=== PATIENT | male | born 1975 | race Caucasian/White ===

== ENCOUNTER 2025-04-30 08:02 | Emergency (ER) | payer OTHER, SELFPAY ==
[2025-04-30] VITALS (8 sets, daily range): BP systolic 98–115; BP diastolic 50–67; PULSE 67–97; RESP 12–16; TEMP 36.1–36.8; O2SAT 97–99; BMI 25.1
--- NOTE | 2025-04-30 08:33 | PC.NURSE ---
Patient presents to ED seeking detox [facility] ETOH use 10-15 whiteclaws everyday with some cocaine use daily Patient was sober about 2 months ago, detox was at [facility] in [facility] 3 Denies SI/HI/AH/VH Patient calm and cooperative with care Provider in to see patient Plan of care on going
--- NOTE | 2025-04-30 08:36 | ED.ALCOHOL ---
HPI - Alcohol General Chief Complaint: ETOH/Substance Use Stated Complaint: Detox Time Seen by Provider: 04/30/25 08:24 Source: patient, RN notes reviewed and old records reviewed Mode of arrival: ambulatory Limitations: no limitations History of Present Illness ED Provider: BRYANT Cruz HPI narrative: 49-year-old medical history of PTSD, depression, anxiety, alcohol use disorder, cocaine use disorder, presents to the ED for assistance with alcohol detox. Patient states currently drinking 10-15 white claws per day, with his last drink being approximately 11:00 p.m. last night. Patient states he had a period of sobriety as he went inpatient for alcohol use disorder through the [place] in November, however is now drinking daily for the past 2 months. Patient also reports cocaine use by sniffing, and has been using daily over the past 2 weeks. Patient states he has a history of alcohol withdrawal, with alcohol seizures and hospital admission. Additionally, patient states he is feeling as if he is withdrawing now as he endorses anxiety, and tremors. Patient also endorses nausea, numbness and tingling in bilateral fingers and toes, with a occipital headache that he rates 5/10, and intermittent blurry vision over the past 2 days. Patient states he has a past history of suicide attempts however denies that he is suicidal today. Patient denies SI, HI, VH, AH, chest pain, shortness of breath, abdominal pain Related Data Allergies Allergy/AdvReac Type Severity Reaction Status Date / Time No Known Allergies Allergy Verified 04/30/25 08:13 Review of Systems Review of Systems: Yes all other systems are reviewed and are negative PMFSH Past Medical History Attestation statement: The following information was validated with the patient. Source: old records reviewed and nursing notes reviewed Social History Social History Alcohol intake: current Alcohol intake frequency: 3 or more drinks per day Alcohol type: beer Smoked in Last 30 Days: Yes Use of substances other than those prescribed or required for medical reasons: Yes Substance Use Type: Crack/Cocaine Substance Use Frequency: Daily Advance Directives: Yes Advance Directives Information Provided: Yes Advance Directives on File: No Do you have a plan to hurt others: No Plan Physical Exam ED Vital Signs: Vital Signs - 24 hr 04/30/25 13:01 04/30/25 16:54 04/30/25 18:38 Temperature 98.2 F Pulse Rate 69 69 70 Respiratory Rate 16 16 14 Blood Pressure 104/50 L 110/67 114/66 Pulse Oximetry 99 99 99 Oxygen Delivery Method Room Air Room Air Room Air 04/30/25 20:11 Temperature 98.2 F Pulse Rate 70 Respiratory Rate 14 Blood Pressure 114/66 Pulse Oximetry 99 Oxygen Delivery Method Room Air BMI result Body Mass Index 25.1 GENERAL APPEARANCE: ?AxOx4, no acute distress. HEENT: ?NC, AT. MMM. EOMI, clear conjunctiva, oropharynx clear. NECK: ?Supple without lymphadenopathy.? No stiffness or restricted ROM. HEART:? Normal rate and regular rhythm, normal S1/S2, no m/r/g LUNGS:? CTAB, moving air well. No crackles or wheezes are heard. ABDOMEN: ?Soft, nontender, nondistended with good bowel sounds heard. BACK: No CVAT, no obvious deformity. EXTREMITIES: ?Without cyanosis, clubbing or edema. NEUROLOGICAL: ?Grossly nonfocal. Alert and oriented, moving all 4 extremities. Observed to ambulate with normal gait. Skin: ?Warm and dry without any rash. Course Reevaluation(s) Reevaluation #1: CIWA score of 4 and reports increased anxiety. Patient medicated with additional 5mg IV valium. Time: 17:07 Reevaluation #2: The patient is medically cleared for discharge to detox facility Time: 17:42 Reevaluation #3: Dr. Couch: The patient was signed out to me at change of shift. The patient is a 49-year-old male who presents to the emergency room looking for detox from substance abuse problems including alcohol. He was medically cleared and [facility] The patient remained stable and was ultimately discharged by ambulance [facility]. 19:40 04/30/2025 Medical Decision Making Medical Decision Making MDM Narrative: 49-year-old medical history of PTSD, depression, anxiety, alcohol use disorder, cocaine use disorder, presents to the ED for assistance with alcohol detox, currently drinking 10-15 white claws per day, and using approximately 1 g of cocaine per day. Last drink was 11:00 p.m. last night. Patient is endorsing occipital headache, numbness of bilateral fingers and toes, nausea, tremors and anxiety and is looking for formal detox from alcohol at this time. Vital signs on initial observation-BP 115/58, pulse rate of 97, respiratory rate of 16, afebrile with oral temp of 97?, O2 saturation 97% on room air. CIWA score of 3. Plan: Labs, LARA, recovery team consult - Patient medicated with 5mg IV valium, 200mg IV thiamine, 4mg IV zofran for alcohol withdrawal symptoms, 1gIV tylenol and 4mg IV zofran for headache. Labs without leukocytosis/leukopenia, no evidence of anemia, no electrolyte abnormalities. Ethanol level <10. LARA positive for benzodiazepines, and cocaine. Recovery team is currently working with the [place] for bed search for formal alcohol detox. Differential Diagnosis Differential Diagnoses: The differential diagnosis associated with the presentation includes Alcohol withdrawal Electrolyte abnormalities Encounter for alcohol detox Admission/Observation Consideration of admission/observation: Escalation of care including admission/observation considered Consult Healthcare Provider Management of the patient was discussed with: [employer] (CARE team Betty Muro ) Per team is currently working on getting patient a bed through the [place] however we are awaiting LARA. Lab Data MDM Lab Attestation statement: I reviewed the patient's lab results. 04/30/25 08:55 04/30/25 08:55 Labs: Lab Results 04/30/25 04/30/25 Range/Units 08:55 16:02 WBC 6.9 (4.8-10.8) X10*3/uL RBC 4.79 (4.60-5.80) X10*6/uL Hgb 15.3 (14.0-18.0) g/dl Hct 44.8 (42.0-52.0) % MCV 93.5 (80.0-98.0) fL MCH 31.9 (27.0-33.0) pg MCHC 34.2 (31.0-36.0) g/dl RDW 14.2 (11.0-16.0) % Plt Count 347 (160-400) X10*3/uL MPV 10.3 (9.4-12.4) fL Immature Gran % (Auto) 0.3 (0.0-0.4) % Neut % (Auto) 68.1 (45-73) % Lymph % (Auto) 15.9 L (20-40) % [place] % (Auto) 13.1 H (2-11) % Eos % (Auto) 1.6 (0-4) % Baso % (Auto) 1.0 (0-2) % Lymph # (Auto) 1.1 L (1.2-4.9) X10*3/uL [place] # (Auto) 0.9 (0.1-1.2) X10*3/uL Eos # (Auto) 0.1 (0.0-0.4) X10*3/uL Baso # (Auto) 0.1 (0.0-0.2) X10*3/uL Abs Immat Gran (auto) 0.02 (0.00-0.03) X10*3/uL Absolute Neuts (auto) 4.7 (2.0-8.3) x10*3/uL Absolute Nucleated RBC 0.000 (0.0-0.012) X10*3/uL Nucleated RBC % (auto) 0.0 (0.0-0.2) /100WBC Sodium 142 (135-145) mmol/L Potassium 4.2 (3.3-5.1) mmol/L Chloride 108 (96-108) mmol/L Carbon Dioxide 25 (22-29) mmol/L Anion Gap 13 (12-20) BUN 10 (9-16) mg/dL Creatinine 0.98 (0.5-1.4) mg/dL Estim Creat Clear Calc 92.0 Estimated GFR > 60 Random Glucose 129 H (60-115) mg/dL Calcium 8.8 (8.4-10.2) mg/dL Magnesium 2.5 (1.6-2.6) mg/dL Total Bilirubin 0.6 (0.0-1.0) mg/dL AST 24 (5-37) U/L ALT 17 (0-40) U/L Alkaline Phosphatase 88 (39-117) U/L Total Protein 6.4 L (6.5-8.0) g/dL Albumin 3.9 (3.5-5.0) g/dL Urine Opiates Screen Not Detected (Not Detect) Ur Buprenorphine Scrn Not Detected (Not Detect) ng/mL Ur Oxycodone Screen Not Detected (Not Detect) ng/mL Urine Methadone Screen Not Detected (Not Detect) ng/mL Urine Fentanyl Screen Not Detected (Not Detect) Ur Barbiturates Screen Not Detected (Not Detect) Ur Phencyclidine Scrn Not Detected (Not Detect) Ur Amphetamines Screen Not Detected (Not Detect) U Benzodiazepines Scrn POSITIVE H (Not Detect) Urine Cocaine Screen POSITIVE H (Not Detect) U Marijuana (THC) Screen Not Detected (Not Detect) Ethyl Alcohol < 10 mg/dL External Record Review External record reviewed: Inpatient record, Office record and Outpatient record Chronic Conditions Patient?s care impacted by: Other (Alcohol use disorder, cocaine use disorder, PTSD, depression, anxiety) Medications Administered Discontinued Medications Generic Name Dose Route Start Last Admin Trade Name Freq PRN Reason Stop Dose Admin Diazepam 5 mg 04/30/25 08:47 04/30/25 09:01 Diazepam 10 Mg/2 Ml Cartridge IVPUSH 04/30/25 08:48 5 mg STAT STA Administration Diazepam 5 mg 04/30/25 17:09 04/30/25 17:29 Diazepam 10 Mg/2 Ml Cartridge IVPUSH 04/30/25 17:10 5 mg STAT STA Administration Acetaminophen 1,000 mg in 100 mls @ 400 mls/hr 04/30/25 08:47 04/30/25 09:19 Ofirmev IV 04/30/25 09:01 Infused ONCE ONE Infusion Thiamine HCl 200 mg/ Sodium 102 mls @ 204 mls/hr 04/30/25 08:47 04/30/25 09:39 Chloride IV 04/30/25 09:16 Infused ONCE ONE Infusion Lactated Ringer's 1,000 mls @ 999 mls/hr 04/30/25 08:49 04/30/25 10:39 Lr IV 04/30/25 09:49 Infused .Q1H1M ONE Infusion Ondansetron HCl 4 mg 04/30/25 08:47 04/30/25 09:01 Ondansetron Hcl 4 Mg/2 Ml Vial IVPUSH 04/30/25 08:48 4 mg ONCE ONE Administration Discharge Plan Discharge Clinical Impression: Alcohol use disorder Patient Disposition: Xfer Inpatient Rehab Fac Transfer Details: [place] detox Referrals: [facility] [Provider Group] Interventions: Acute Care Transfer Worksheet (ED) Last Done: 04/30/25 20:11 Discharge Date/Time: 04/30/25 20:22 Print Language: [place]ese
[2025-04-30 08:59] LABS: MANUAL DIFF FLAG NO
[2025-04-30 09:01] LABS: Hematocrit 44.8 % (42.0-52.0); Hemoglobin 15.3 g/dl (14.0-18.0); Imm Gran Abs Auto 0.02 X10*3/uL (0.00-0.03); Imm Gran Pct Auto 0.3 % (0.0-0.4); Lymphocytes Absolute Auto 1.1 X10*3/uL (1.2-4.9); Mean Corpuscular HGB Conc 34.2 g/dl (31.0-36.0); Mean Corpuscular Hemoglobin 31.9 pg (27.0-33.0); Mean Corpuscular Volume 93.5 fL (80.0-98.0); NRBC Abs Auto 0.000 X10*3/uL (0.0-0.012); NRBC Pct Auto 0.0 /100WBC (0.0-0.2); Platelet Count 347 X10*3/uL (160-400); Red Blood Count 4.79 X10*6/uL (4.60-5.80); White Blood Count 6.9 X10*3/uL (4.8-10.8)
[2025-04-30] MEDS: diazePAM 10 MG/2 ML CARTRIDGE 5 MG IVPUSH ×2 (09:01→17:29)
[2025-04-30] MEDS: Lactated Ringers 1,000 ML 999 ML IV (09:01)
[2025-04-30] MEDS: Thiamine HCL 200 MG in 0.9 % Sodium Chloride 100 ML 204 MG IV (09:02)
[2025-04-30 09:16] LABS: Alanine Aminotransferase 17 U/L (0-40); Albumin Level 3.9 g/dL (3.5-5.0); Alkaline Phosphatase 88 U/L (39-117); Anion Gap 13 (12-20); Aspartate Amino Transferase 24 U/L (5-37); Blood Urea Nitrogen 10 mg/dL (9-16); Calcium 8.8 mg/dL (8.4-10.2); Carbon Dioxide 25 mmol/L (22-29); Chloride 108 mmol/L (96-108); Creatinine Clr Calc Pharmacy 92.0; Estimated Glomerular Filt Rate > 60; Magnesium 2.5 mg/dL (1.6-2.6); Potassium 4.2 mmol/L (3.3-5.1); Sodium 142 mmol/L (135-145); Total Protein 6.4 g/dL (6.5-8.0)
[2025-04-30 16:24] LABS: Cannabinoid Screen Urine Not Detected (Not Detect)
--- NOTE | 2025-04-30 17:33 | ECG_ITS ---
Test Reason : DETOX Blood Pressure : */* mmHG Vent. Rate : 78 BPM Atrial Rate : 78 BPM P-R Int : 158 ms QRS Dur : 80 ms QT Int : 414 ms P-R-T Axes : 67 31 56 degrees QTcB Int : 471 ms Normal sinus rhythm Normal ECG No previous ECGs available Referred By: Conrad Wade Electronically Signed By: TITA DEL TORO
--- NOTE | 2025-04-30 18:00 | MHC.CARE ---
Packet sent to [facility] in [place], is under review.
--- NOTE | 2025-04-30 19:06 | MHC.CARE ---
[facility] ED[facility] Darren [facility]. Accepting doc is doctor hawkins
--- NOTE | 2025-04-30 20:05 | PC.NURSE ---
IV removed. pt given sandwich per request. EMS here for transport to [place].
== END 2025-04-30 20:22 ==
PROVIDERS: Emergency Provider Emergency Medicine
DX: F10.90 Alcohol use, unspecified, uncomplicated (principal); F14.90 Cocaine use, unspecified, uncomplicated; Y90.0 Blood alcohol level of less than 20 mg/100 ml; R11.0 Nausea; R51.9 Headache, unspecified; R20.0 Anesthesia of skin; H53.8 Other visual disturbances; Z51.81 Encounter for therapeutic drug level monitoring; Z79.899 Other long term (current) drug therapy; Z91.51 Personal history of suicidal behavior
CPT/HCPCS: 36415; 80053; 80307; 83735; 85025; 93005; 96365; 96366; 96367; 96375; 99285; J0131; J2405; J3360; J3411; J7120; S9485

== ENCOUNTER → 2025-04-30 17:33 | Outpatient (BNV) | payer OTHER, SELFPAY | PROVIDERS: Emergency Provider Emergency Medicine; Visit Provider Internal Medicine | DX: Z13.6 Encounter for screening for cardiovascular disorders (principal) | CPT/HCPCS: 93010 ==

== ENCOUNTER 2025-05-13 03:19 | Emergency (ER) | payer OTHER, SELFPAY ==
--- NOTE | 2025-05-13 | ECG_ITS ---
Test Reason : SUBSTANCE USE Blood Pressure : */* mmHG Vent. Rate : 80 BPM Atrial Rate : 80 BPM P-R Int : 166 ms QRS Dur : 84 ms QT Int : 382 ms P-R-T Axes : 74 21 61 degrees QTcB Int : 440 ms Normal sinus rhythm Normal ECG When compared with ECG of 30-Apr-2025 17:45, No significant change was found Referred By: Generic ED Physician Electronically Signed By: TITA DEL TORO
--- NOTE | ~2025-05-13 | CT_ITS ---
CLINICAL HISTORY: AMS CT head without contrast Comparison: None provided Findings: No intra-axial mass, midline shift, hydrocephalus, or acute hemorrhage. No significant atrophy-like change or white matter disease. There is no sinus or mastoid fluid. The orbits are unremarkable. No skull fracture. IMPRESSION: 1. No acute intracranial findings. This document has been electronically signed by: Marisa Ritter MD on 05/13/2025 15:41:59
[2025-05-13 03:35] VITALS: BP 120/86; PULSE 101; O2SAT 96; BMI 21.8
[2025-05-13 03:42] VITALS: BP 122/69; PULSE 89; RESP 16; TEMP 36.8; O2SAT 98
[2025-05-13 04:05] LABS: Hematocrit 40.5 % (42.0-52.0); Hemoglobin 14.1 g/dl (14.0-18.0); Imm Gran Abs Auto 0.03 X10*3/uL (0.00-0.03); Imm Gran Pct Auto 0.3 % (0.0-0.4); Lymphocytes Absolute Auto 1.6 X10*3/uL (1.2-4.9); Mean Corpuscular HGB Conc 34.8 g/dl (31.0-36.0); Mean Corpuscular Hemoglobin 31.9 pg (27.0-33.0); Mean Corpuscular Volume 91.6 fL (80.0-98.0); NRBC Abs Auto 0.000 X10*3/uL (0.0-0.012); NRBC Pct Auto 0.0 /100WBC (0.0-0.2); Platelet Count 250 X10*3/uL (160-400); Red Blood Count 4.42 X10*6/uL (4.60-5.80); White Blood Count 11.4 X10*3/uL (4.8-10.8)
[2025-05-13 04:06] LABS: MANUAL DIFF FLAG NO
--- NOTE | 2025-05-13 04:20 | PC.NURSE ---
pt reports having anxiety, provider advised, awaiting new orders.
[2025-05-13 04:29] LABS: Alanine Aminotransferase 28 U/L (0-40); Albumin Level 4.5 g/dL (3.5-5.0); Alkaline Phosphatase 75 U/L (39-117); Anion Gap 15 (12-20); Aspartate Amino Transferase 46 U/L (5-37); Blood Urea Nitrogen 20 mg/dL (9-16); Calcium 9.1 mg/dL (8.4-10.2); Carbon Dioxide 25 mmol/L (22-29); Chloride 103 mmol/L (96-108); Creatinine Clr Calc Pharmacy 90.2; Estimated Glomerular Filt Rate > 60; Potassium 3.9 mmol/L (3.3-5.1); Salicylate < 5.0 mg/dL (15-30); Sodium 139 mmol/L (135-145); Total Protein 6.8 g/dL (6.5-8.0)
[2025-05-13 04:34] LABS: Troponin-I High Sensitivity 3.1 ng/L (<3.5-35.0)
--- OUTSIDE RECORDS SUMMARY | 2025-05-13 04:42 | XMS_ITS | Clinical Summary ---
Author Organization [facility] Address [address] [place] [id number] Phone Care Team Providers Care Furnace Door Tender Name Role Phone Pcp, Unknown Primary Care Provider Unavailabl e Allergies No known active allergies Medications No known medications Active Problems No known active problems Encounters Date Type Department Care Team Description 04/08/2025 3:23 AM EDT - 04/08/2025 10:21 AM EDT Emergency [facility] [address] [place] [address] Earline Trimble MD Steinberg, Benjamin G, MD Discharge Disposition: Eloped After Being Seen By Provider from Last 3 Months Social History Tobacco Use Types Packs/Day Years Used Date Smoking Tobacco: Never Assessed Education Answer Date Recorded Are you interested in more education? Not on scarlett e 04/08/2025 Are you concerned about learning? Not on file 04/08/2025 No 04/08/2025 No 04/08/2025 Digital Access Answer Date Recorded No 04/08/2025 No 04/08/2025 Reliable internet access at home? Not on file 04/08/2025 Device with a working camera? Not on file Intimate Partner Violence Answer Date R ecorded Are you denied basic needs s uch as food, clothing, or medical care? No 04/08/2025 In the past 12 months have y ou been in a relationship with a person who hurts, threatens, or tries to control you? No 04/08/2025 Are you denied basic needs s uch as food, clothing, or medical care? No 04/08/2025 In the past 12 months have y ou been in a relationship with a person who hurts, threatens, or tries to control you? No 04/08/2025 Sex and Gender Information Value Date Recorded Sex Assigned at Not on file Legal Sex Male 2:33 AM EDT Gender Identity Not on file Sexual Orientation Not on file Last Filed Vital Signs Vital Sign Reading Time Taken Comments Blood Pressure 104/68 04/08/2025 8:21 AM EDT Pulse 81 04/08/2025 8:21 AM EDT Temperature 36.9 C (98.4 F) 04/08/2025 8:21 AM EDT Respiratory Rate 18 04/08/2025 8:21 AM EDT Oxygen Saturation 95% 04/08/2025 8:21 AM EDT Inhaled Oxygen Concentration - - Weight 83.9 kg (185 lb) 04/08/2025 8:21 AM EDT Height 177.8 cm (5' 10 ) 04/08/2025 8:21 AM EDT Body Mass Index 26.54 04/08/2025 8:21 AM EDT Plan of Treatment Health Maintenance Due Date Last Done Comments Adult Td,Tdap Booster 1973 LIPID PANEL 1973 DEPRESSION SCREENING 1985 SMOKING Hx and SMOKELESS TOB ACCO SCREENING 1986 HEPATITIS C SCREENING 1991 HIV ONE-TIME SCREENING (18-6 5 YEARS) 1991 SCREENING FOR DIABETES 2008 COLOGUARD 2018 COLONOSCOPY 2018 COLORECTAL CANCER SCREENING 2018 FIT TEST 2018 FOBT 2018 SIGMOIDOSCOPY 2018 VIRTUAL COLONOSCOPY 2018 PNEUMOCOCCAL VACCINES (50+ y ears) (1 of 1 - PCV) 2023 ZOSTER VACCINES (1 of 2) 2023 INFLUENZA VACCINE (#1) 2025 COVID-19 VACCINE (1 - 2024-2 6 season) 2025 RSV VACCINE (1 - 1-dose 75+ series) 2048 HEPATITIS A VACCINES Aged Out No long er eligible based on patient's age to complete this topic HIB VACCINES Aged Out No longer eligi ble based on patient's age to complete this topic MENINGOCOCCAL VACCINES (ACWY) Aged Out No longer eligible based on patient's age to complete this topic MENINGOCOCCAL VACCINES (B) Aged Out N o longer eligible based on patient's age to complete this topic Medical Devices Not on file Procedures Procedure Name Priority Date/Time Associated Diagnosis Comments TOXICOLOGY SCREEN, URINE STAT 04/08/2025 5:49 AM EDT ETHANOL, BLOOD STAT 04/08/2025 3:41 AM EDT LFTS (HEPATIC PANEL) STAT 04/08/2025 3:41 AM EDT BASIC METABOLIC PANEL (BMP) STAT 04/08/2025 3:41 AM EDT CBC AND DIFFERENTIAL STAT 04/08/2025 3:41 AM EDT ECG 12-LEAD STAT 04/08/2025 3:38 AM EDT COVID PANDEMIC RESPIRATORY VIRAL ORDER (PRO) Routine 04/08/2025 3:32 AM EDT from Last 3 Months Results * (ABNORMAL) Toxicology screen, urine (04/08/2025 5:49 AM EDT) URINE CANNABINOIDS NONE DETECTED NONE DETECTED [facility] Comment:Cutoff: 50 ng/mL URINE COCAINE METAB Positive(A) NONE DETECTED [facility] Comment:Cutoff: 300 ng/mL URINE AMPHETAMINES NONE DETECTED NONE DETECTED [facility] Comment:Cutoff: 1000 ng/mL URINE METHADONE NONE DETECTED NONE DETECTED [facility] Comment:Cutoff: 300 ng/mL URINE OPIATES NONE DETECTED NONE DETECTED [facility] Comment:Cutoff: 300 ng/mL URINE PHENCYCLIDINE NONE DETECTED NONE DETECTED [facility] Comment:Cutoff: 25 ng/mL URINE OXYCODONE NONE DETECTED NONE DETECTED [facility] Comment:Cutoff: 300 ng/mL URINE BARBITURATES Positive(A) NONE DETECTED [facility] Comment:Cutoff: 200 ng/mL URINE BENZODIAZEPINE NONE DETECTED NONE DETECTED [facility] Comment:Cutoff: 200 ng/mL URINE BUPRENORPHINE NONE DETECTED NONE DETECTED [facility] Comment:Cutoff: 5 ng/mL Fentanyl, urine NONE DETECTED NONE DETECTED [facility] Comment: Cutoff: 5 ng/mL INTERPRETATION FOR TOXICOLOGY PANEL: These results are unconfirmed and should be used for Medical Treatment purposes only. Urine (Urine) 04/08/2025 5:4 9 AM EDT 04/08/2025 9:29 AM EDT us Earline Trimble MD LAB URINE ORDERABLES Final R esult Performing Organization Address [facility] Co de Phone Number [address] [address] * Ethanol, blood (04/08/2025 3:41 AM EDT) ETHANOL <10 <10 mg/dL [facility] Blood 04/08/2025 3:41 AM EDT 04/08/2025 3:45 AM EDT us Earline Trimble MD LAB BLOOD BKR ORDERABLES Fin al Result Performing Organization Address [facility] de Phone Number [address] [address] * LFTs (hepatic panel) (04/08/2025 3:41 AM EDT) ALKALINE PHOSPHATASE 95 39 - 117 U/L [facility] TOTAL BILIRUBIN <0.2 0.0 - 1.2 mg/dL [facility] DIRECT BILIRUBIN 0.1 0.0 - 0.2 mg/dL [facility] Bilirubin (Indirect) NOT CALCULATED 0 - 1.5 mg/dL [facility] AST 22 0 - 37 U/L [facility] ALT 32 0 - 40 U/L [facility] TOTAL PROTEIN 6.6 6.5 - 8.0 g/dL [facility] ALBUMIN 4.1 3.9 - 4.8 g/dL [facility] GLOBULIN 2.5 1 - 4.8 g/dL [facility] A/G Ratio 1.64 1.00 - 4.80 RATIO [facility] Blood 04/08/2025 3:41 AM EDT 04/08/2025 3:45 AM EDT Earline Trimble MD LAB BLOOD BKR ORDERABLES Fin al Result Performing Organization Address [facility] Co de Phone Number [facility] [address] [place] [address] * (ABNORMAL) CBC and differential (04/08/2025 3:41 AM EDT) WBC 11.24(H) 4.00 - 11.00 K/uL [facility] RBC 4.52 4.50 - 5.90 M/uL [facility] HGB 14.5 13.5 - 17.5 g/dL [facility] HCT 42.2 41.0 - 53.0 % [facility] PLT 273 150 - 450 K/uL [facility] MCV 93.4 80.0 - 100.0 fL [facility] MCH 32.1(H) 27.0 - 31.0 pg [facility] MCHC 34.4 32.0 - 36.0 g/dL [facility] RDW 14.4 11.5 - 14.5 % [facility] MPV 10.9 8.4 - 12.0 fL [facility] NRBC 0.00 0.00 /100 WBCs [facility] ABSOLUTE NRBC 0.00 0.00 K/uL [facility] DIFF METHOD Auto [facility] NEUTS 78.3(H) 48.0 - 76.0 % [facility] LYMPHS 9.9(L) 18.0 - 41.0 % [facility] MONOS 9.6 4.0 - 11.0 % [facility] EOS 1.2 0.0 - 5.0 % [facility] BASOS 0.7 0.0 - 1.5 % [facility] Granulocytes, immature (%) 0.3 0.0 - 0.9 % [facility] ABSOLUTE NEUTS 8.80(H) 1.92 - 7.60 K/uL [facility] ABSOLUTE LYMPHS 1.11 0.72 - 4.10 K/uL [facility] ABSOLUTE MONOS 1.08 0.16 - 1.10 K/uL [facility] ABSOLUTE EOS 0.14 0.00 - 0.50 K/uL [facility] ABSOLUTE BASOS 0.08 0.00 - 0.15 K/uL [facility] Granulocytes, immature 0.03 0.00 - 0.09 K/uL [facility] Blood 04/08/2025 3:41 AM EDT 04/08/2025 3:45 AM EDT us Earline Trimble MD LAB BLOOD BKR ORDERABLES Fin al Result Performing Organization Address [facility] de Phone Number [address] [address] * (ABNORMAL) Basic metabolic panel (04/08/2025 3:41 AM EDT) SODIUM 145 133 - 146 mmol/L [facility] CHLORIDE 108 96 - 108 mmol/L [facility] POTASSIUM 4.1 3.3 - 5.1 mmol/L [facility] CO2 27 21 - 35 mmol/L [facility] BUN 15 6 - 19 mg/dL [facility] CREATININE 0.90 0.5 - 1.5 mg/dL [facility] GLUCOSE 131(H) 70 - 99 mg/dL [facility] CALCIUM 9.4 8.4 - 10.3 mg/dL [facility] EGFR 103 >59 mL/min/1.7 3m2 [facility] Comment:Estimated glomerular filtration rate calculated using the CKD-EPI refit equation. ANION GAP 14 10 - 20 mmol/L [facility] Blood 04/08/2025 3:41 AM EDT 04/08/2025 3:45 AM EDT us Earline Trimble MD LAB BLOOD BKR ORDERABLES Fin al Result Performing Organization Address [facility] Co de Phone Number [address] [address] * ECG 12-LEAD (04/08/2025 3:38 AM EDT) Ventricular Rate EKG/MIN 88 BPM [facility] Atrial Rate 88 BPM [facility] AL Interval 152 ms [facility] QRS Duration 78 ms [facility] QT Interval 392 ms [facility] QTC Interval 474 ms [facility] P [place] 78 degrees [facility] R Wave [place] 44 degrees [facility] T Wave [place] 66 degrees [facility] 04/08/2025 3:38 AM EDT 04/08/2025 11:30 AM EDT Narrative [facility] - 04/08/2025 11:30 AM EDT Normal sinus rhythm Anterior infarct , age undetermined Abnormal ECG No previous ECGs available Confirmed by Georgi Nazario ([id number]) on 04/08/2025 11:30:13 AM Earline Trimble MD ECG ORDERABLES Final Result Performing Organization Address [facility] Co de Phone Number [email or web address] * COVID Pandemic Respiratory Viral Order (PRO) (04/08/2025 3:32 AM EDT) Test Ordered Rapid COVID has been ordered [facility] Specimen Source/Description NASAL [facility] SARS-CoV 2 (COVID-19) PCR Not Detected Not Detected [facility] Comment: SARS-CoV-2 not detected Negative results do not preclude SARS-CoV-2 infection and should not be used as the sole basis for patient management decisions. Negative results must be combined with clinical observations, patient history, and epidemiological information. Other (Nasal swab) 04/08/2025 3:32 AM EDT 04/08/2025 3:38 AM EDT Earline Trimble MD LAB GENERAL ORDERABLES Edite d Result - Final Performing Organization Address [facility] Co de Phone Number [facility] [address] [place] [address] from Last 3 Months Insurance [facility] Care Teams Furnace Door Tender Relationship Specialty Start Date End Date Pcp, Unknown PCP - General 04/08/25 Additional Source Comments The information contained in this document represents components of the legal health record. It is not the complete legal health record.[facility]
--- NOTE | 2025-05-13 04:43 | PC.NURSE ---
pt medicated per AUG. offered eye mask and ear buds, pt declined at this time. calm cooperative, 1:1 sitter at beside.
--- NOTE | 2025-05-13 08:57 | ED.PSYCH ---
HPI - Psych General Chief Complaint: Psychiatric Symptoms Stated Complaint: SI PER EMS Time Seen by Provider: 05/13/25 07:14 Source: patient and EMS Mode of arrival: EMS Limitations: other (not participating in history of physical exam ) History of Present Illness ED Provider: SHARRON Adamson HPI Narrative: Chief Complaint: ?I feel suicidal.? (per external report; patient nods ?yes? when asked if suicidal) History of Present Illness: Darren is an 49-year-old male brought to the Emergency Department for evaluation of suicidal ideation. He is somnolent on arrival and throughout the interview, frequently closing his eyes and not responding to questions. When asked directly about suicidality, he nods affirmatively but provides no further details or specific plan. The patient otherwise refuses or is unable to provide additional history or review of systems. ? Per triage documentation: patient called a suicide hotline and EMS for help, endorsed alcohol use, and has a history of previous alcoholism and prior cocaine use. ? Related Data Allergies Allergy/AdvReac Type Severity Reaction Status Date / Time No Known Allergies Allergy Verified 05/13/25 03:37 Review of Systems Review of Systems: Yes Unobtainable due to mental condition [facility] Past Medical History Attestation statement: The following information was validated with the patient. Source: old records reviewed and nursing notes reviewed Social History Social History Alcohol intake: current Alcohol intake frequency: 3 or more drinks per day Alcohol type: beer Substance Use Type: IV Drugs Physical Exam Exam: Exam: General: Somnolent but arousable; appears well on stretcher; no acute distress. HEENT: Conjunctivae injected bilaterally; mild odor of alcohol noted. Cardiovascular: Regular rate and rhythm. Respiratory: Lungs clear to auscultation bilaterally. Neurological: Cranial nerves II?XII grossly intact; patient was ambulatory into the department. Vital Signs: Vital Signs: Last Vital Signs Temp 97.5 F 05/14/25 10:45 Pulse 77 05/14/25 10:45 Resp 14 05/14/25 10:45 BP 109/61 05/14/25 10:45 Pulse Ox 98 05/14/25 10:45 O2 Del Method Room Air 05/14/25 10:45 BMI result Body Mass Index 21.8 vs Course Reevaluation(s) Reevaluation #1: Patient's CBC with leukocytosis no left shift nonspecific. Chemistry with mild elevation in BUN and creatinine a L of IV fluids ordered. Patient's ethanol negative acetaminophen salicylates negative. Urine toxicology still pending. Time: 10:39 Reevaluation #2: Patient moved over to the behavioral health pod. Patient still quite sleepy CT head ordered Time: 12:12 Reevaluation #3: Patient's CT scan pending. Care team evaluated patient [facility]. Care team helped arrange this. Time: 15:13 Additional Reevaluation(s): CT head unremarkable. Patient to be placed into observation to allow more time to be [facility]. Time: 04:40 Date: 05/14/25 Provider: Javier Arias MD Patient in physician observation for psychiatric evaluation.? No acute events reported overnight. No current complaints. VS stable.? Patient was evaluated yesterday by CARE team clinician who felt that the patient did not require inpatient level of care. Plan was to observe the patient overnight and if stable the patient will be discharged home with follow up with a [facility] providers. Will continue to monitor. Time: 10:57 Date: 05/14/25 Provider: Javier Arias MD Physician observation ended at 10:57 hours. Patient has been evaluated by care team in his cleared [facility] be [facility]. Medications Administered Discontinued Medications Generic Name Dose Route Start Last Admin Trade Name Freq PRN Reason Stop Dose Admin Lorazepam 2 mg 05/13/25 04:14 05/13/25 04:29 Lorazepam 1 Mg Tablet PO 05/13/25 04:15 2 mg ONCE ONE Administration Medical Decision Making Medical Decision Making MDM Narrative: 49-year-old male with reported suicidal ideation, somnolence, leukocytosis, and mild azotemia; limited history obtainable. Problem #1: Suicidal ideation Assessment: Patient nods ?yes? when asked about suicidality but offers no details or plan; unable/unwilling to provide further history. Plan: Maintain patient on suicidal precautions. Problem #2: Possible alcohol use/intoxication Assessment: Patient endorsed alcohol use to suicide hotline; however, no odor of alcohol noted and ethanol level negative. Degree of acute intoxication uncertain. Plan: Monitor clinically during ED stay and subsequent admission. Differential Diagnosis Differential Diagnoses: The differential diagnosis associated with the presentation includes Admission/Observation Consideration of admission/observation: Escalation of care including admission/observation considered Lab Data 05/13/25 04:02 05/13/25 04:02 Labs: Lab Results 05/13/25 05/13/25 Range/Units 04:02 20:22 WBC 11.4 H (4.8-10.8) X10*3/uL RBC 4.42 L (4.60-5.80) X10*6/uL Hgb 14.1 (14.0-18.0) g/dl Hct 40.5 L (42.0-52.0) % MCV 91.6 (80.0-98.0) fL MCH 31.9 (27.0-33.0) pg MCHC 34.8 (31.0-36.0) g/dl RDW 14.0 (11.0-16.0) % Plt Count 250 D (160-400) X10*3/uL MPV 10.1 (9.4-12.4) fL Immature Gran % (Auto) 0.3 (0.0-0.4) % Neut % (Auto) 72.7 (45-73) % Lymph % (Auto) 14.3 L (20-40) % [place] % (Auto) 11.6 H (2-11) % Eos % (Auto) 0.6 (0-4) % Baso % (Auto) 0.5 (0-2) % Lymph # (Auto) 1.6 (1.2-4.9) X10*3/uL [place] # (Auto) 1.3 H (0.1-1.2) X10*3/uL Eos # (Auto) 0.1 (0.0-0.4) X10*3/uL Baso # (Auto) 0.1 (0.0-0.2) X10*3/uL Abs Immat Gran (auto) 0.03 (0.00-0.03) X10*3/uL Absolute Neuts (auto) 8.3 (2.0-8.3) x10*3/uL Absolute Nucleated RBC 0.000 (0.0-0.012) X10*3/uL Nucleated RBC % (auto) 0.0 (0.0-0.2) /100WBC Sodium 139 (135-145) mmol/L Potassium 3.9 (3.3-5.1) mmol/L Chloride 103 (96-108) mmol/L Carbon Dioxide 25 (22-29) mmol/L Anion Gap 15 (12-20) BUN 20 H (9-16) mg/dL Creatinine 1.00 (0.5-1.4) mg/dL Estim Creat Clear Calc 90.2 Estimated GFR > 60 Random Glucose 102 (60-115) mg/dL Calcium 9.1 (8.4-10.2) mg/dL Total Bilirubin 0.6 (0.0-1.0) mg/dL AST 46 H (5-37) U/L ALT 28 (0-40) U/L Alkaline Phosphatase 75 (39-117) U/L Troponin I High Sens 3.1 (<3.5-35.0) ng/L Total Protein 6.8 (6.5-8.0) g/dL Albumin 4.5 (3.5-5.0) g/dL Urine Color Yellow Urine Appearance Clear Urine pH 5.5 (5.0-9.0) Ur Specific [place] >= 1.030 H (1.005-1.025) Urine Protein Negative (Neg-Trace) mg/dL Urine Glucose (UA) Negative (Negative) mg/dL Urine Ketones Trace (Negative) mg/dL Urine Blood Trace H (Negative) Urine Nitrite Negative (Negative) Ur Leukocyte Esterase Negative (Negative) Urine RBC 11-20 H (0-2) /HPF Urine WBC 0-5 (0-5) /HPF Ur Squamous Epith Cells 0-2 (0-2) /HPF Urine Bacteria None Seen (None Seen) Hyaline Casts 0-2 (0-2) /LPF Salicylates < 5.0 L (15-30) mg/dL Urine Opiates Screen Not Detected (Not Detect) Ur Buprenorphine Scrn Not Detected (Not Detect) ng/mL Ur Oxycodone Screen Not Detected (Not Detect) ng/mL Urine Methadone Screen Not Detected (Not Detect) ng/mL Urine Fentanyl Screen POSITIVE H (Not Detect) Acetaminophen < 3 (<30) mcg/mL Ur Barbiturates Screen Not Detected (Not Detect) Ur Phencyclidine Scrn Not Detected (Not Detect) Ur Amphetamines Screen Not Detected (Not Detect) U Benzodiazepines Scrn Not Detected (Not Detect) Urine Cocaine Screen POSITIVE H (Not Detect) U Marijuana (THC) Screen Not Detected (Not Detect) Ethyl Alcohol < 10 mg/dL Critical Care Time Critical Care Time Critical Care Time: No Discharge Plan Discharge Clinical Impression: Depression, Suicidal ideation Patient Disposition: Xfer Other Transfer Details: [facility] Instructions: Depression (ED), Suicide Prevention (ED) Additional Instructions: You were evaluated by our care team and at this time they did not think that you need to be admitted here as an inpatient and they felt that you would be better off going to your [facility] facility. Please follow the care team instructions. Continue taking your medications as prescribed. Behavioral health instructions You were seen in our Emergency Department today for treatment of a behavioral health issue. It is important after your visit that you follow up with either your behavioral health provider or a primary care doctor within 7 days.? If you have trouble finding a therapist you can reach out to [place] [phone] The National Suicide and Crisis Lifeline can be reached 7 days a week 24 hours a day.? Call 988 to speak with someone.? Return for any worsening symptoms or concerns such as thoughts of self harm or harm to others. Please call 911 if you feel your mental health is worsening.? Interventions: [place]-Suicide Risk Severity Scale Last Done: 05/14/25 07:29 ED Discharge Assessment Last Done: 05/14/25 10:45 Print Language: Czech
[2025-05-13 09:51] LABS: Acetaminophen LAB < 3 mcg/mL (<30)
[2025-05-13 11:38] VITALS: BP 95/53; PULSE 74; RESP 16; TEMP 36.7; O2SAT 95
--- NOTE | 2025-05-13 12:17 | PC.NURSE ---
Assumed care of patient at 1200, patient ambulated with steady gait from ED to 7, patient is calm and cooperative, offering no complaints to this RN. Pt does endorse mild anxiety at this time. Pt aware of plan of care for head CT
[2025-05-13 20:30] LABS: Appearance Urine Clear; Glucose Urine UA Negative (Negative); PH 5.5 (5.0-9.0); Specific Gravity - Urine >= 1.030 (1.005-1.025); UMIC TRIGGER UACC YES
[2025-05-13 20:58] LABS: Cannabinoid Screen Urine Not Detected (Not Detect)
--- NOTE | 2025-05-13 21:00 | PC.NURSE ---
Assumed care at 1845. Presents as calm and cooperative. No HS meds given per MAR. Denies current SI/HI/AVH and states I just don't feel safe out there. Agreeable to alert staff if feeling unsafe. Offers no complaints of pain/discomfort. 15 minute safety checks ongoing. Plan of care ongoing.
[2025-05-14 06:24] VITALS: BP 104/64; PULSE 89; RESP 17; TEMP 36.6; O2SAT 97
--- NOTE | 2025-05-14 07:30 | PC.NURSE ---
Assumed care of patient at 0645, patient appears to be in no apparent distress this am, respirations even and unlabored. Continue plan of care for d/c this am
[2025-05-14 10:45] VITALS: BP 109/61; PULSE 77; RESP 14; TEMP 36.4; O2SAT 98
== END 2025-05-14 10:57 | disposition other institution (70) ==
PROVIDERS: Emergency Provider Emergency Medicine Emergency Medical Services; Referring Provider Physician Assistant
DX: R45.851 Suicidal ideations (principal); F32.A Depression, unspecified
CPT/HCPCS: 36415; 70450; 80053; 80143; 80179; 80307; 81001; 84484; 85025; 93005; 99285; S9485

== ENCOUNTER → 2025-05-13 03:44 | Outpatient (BNV) | payer OTHER, SELFPAY | PROVIDERS: Emergency Provider Emergency Medicine Emergency Medical Services; Visit Provider Internal Medicine | DX: F19.90 Other psychoactive substance use, unspecified, uncomplicated (principal) | CPT/HCPCS: 93010 ==

== ENCOUNTER → 2025-05-13 12:11 | Outpatient (BNV) | payer OTHER, SELFPAY | PROVIDERS: Emergency Provider Emergency Medicine Emergency Medical Services; Visit Provider Radiology Diagnostic Radiology | DX: R41.82 Altered mental status, unspecified (principal) | CPT/HCPCS: 70450 ==

== ENCOUNTER 2025-05-19 04:59 | Emergency (ER) | payer OTHER, SELFPAY ==
[2025-05-19 05:00] VITALS: BP 117/71; PULSE 105; RESP 20; TEMP 36.6; O2SAT 96; BMI 24.4
--- OUTSIDE RECORDS SUMMARY | 2025-05-19 05:08 | XMS_ITS | Clinical Summary ---
Author Organization [facility] Address [address] [place] [id number] Phone Care Team Providers Care Show Host/Hostess Name Role Phone Pcp, Unknown Primary Care Provider Unavailabl e Allergies No known active allergies Medications No known medications Active Problems No known active problems Encounters Date Type Department Care Team Description 04/08/2025 3:23 AM EDT - 04/08/2025 10:21 AM EDT Emergency [facility] [address] [place] [address] Earline Trimble MD Steinberg, Benjamin G, MD [...] EDT) URINE CANNABINOIDS NONE DETECTED NONE DETECTED [facility] Comment:Cutoff: 50 ng/mL URINE COCAINE METAB Positive(A) NONE DETECTED [facility] Comment:Cutoff: 300 ng/mL URINE AMPHETAMINES NONE DETECTED NONE DETECTED [facility] Comment:Cutoff: 1000 ng/mL URINE METHADONE NONE DETECTED NONE DETECTED [facility] Comment:Cutoff: 300 ng/mL URINE OPIATES NONE DETECTED NONE DETECTED [facility] Comment:Cutoff: 300 ng/mL URINE PHENCYCLIDINE NONE DETECTED NONE DETECTED [facility] Comment:Cutoff: 25 ng/mL URINE OXYCODONE NONE DETECTED NONE DETECTED [facility] Comment:Cutoff: 300 ng/mL URINE BARBITURATES Positive(A) NONE DETECTED [facility] Comment:Cutoff: 200 ng/mL URINE BENZODIAZEPINE NONE DETECTED NONE DETECTED [facility] Comment:Cutoff: 200 ng/mL URINE BUPRENORPHINE NONE DETECTED NONE DETECTED [facility] Comment:Cutoff: 5 ng/mL Fentanyl, urine NONE DETECTED NONE DETECTED [facility] Comment: Cutoff: 5 ng/mL INTERPRETATION FOR TOXICOLOGY PANEL: These results are unconfirmed and should be used for Medical Treatment purposes only. Urine (Urine) 04/08/2025 5:4 9 AM EDT 04/08/2025 9:29 AM EDT us Earline Trimble MD LAB URINE ORDERABLES Final R esult Performing Organization Address [facility] Co de Phone Number [address] [address] * Ethanol, blood (04/08/2025 3:41 AM EDT) ETHANOL <10 <10 mg/dL [facility] Blood 04/08/2025 3:41 AM EDT 04/08/2025 3:45 AM EDT us Earline Trimble MD LAB BLOOD BKR ORDERABLES Fin al Result Performing Organization Address [facility] de Phone Number [address] [address] * LFTs (hepatic panel) (04/08/2025 3:41 AM EDT) ALKALINE PHOSPHATASE 95 39 - 117 U/L [facility] TOTAL BILIRUBIN <0.2 0.0 - 1.2 mg/dL [facility] DIRECT BILIRUBIN 0.1 0.0 - 0.2 mg/dL [facility] Bilirubin (Indirect) NOT CALCULATED 0 - 1.5 mg/dL [facility] AST 22 0 - 37 U/L [facility] ALT 32 0 - 40 U/L [facility] TOTAL PROTEIN 6.6 6.5 - 8.0 g/dL [facility] ALBUMIN 4.1 3.9 - 4.8 g/dL [facility] GLOBULIN 2.5 1 - 4.8 g/dL [facility] A/G Ratio 1.64 1.00 - 4.80 RATIO [facility] Blood 04/08/2025 3:41 AM EDT 04/08/2025 3:45 AM EDT Earline Trimble MD LAB BLOOD BKR ORDERABLES Fin al Result Performing Organization Address [facility] Co de Phone Number [facility] [address] [place] [address] * (ABNORMAL) CBC and differential (04/08/2025 3:41 AM EDT) WBC 11.24(H) 4.00 - 11.00 K/uL [facility] RBC 4.52 4.50 - 5.90 M/uL [facility] HGB 14.5 13.5 - 17.5 g/dL [facility] HCT 42.2 41.0 - 53.0 % [facility] PLT 273 150 - 450 K/uL [facility] MCV 93.4 80.0 - 100.0 fL [facility] MCH 32.1(H) 27.0 - 31.0 pg [facility] MCHC 34.4 32.0 - 36.0 g/dL [facility] RDW 14.4 11.5 - 14.5 % [facility] MPV 10.9 8.4 - 12.0 fL [facility] NRBC 0.00 0.00 /100 WBCs [facility] ABSOLUTE NRBC 0.00 0.00 K/uL [facility] DIFF METHOD Auto [facility] NEUTS 78.3(H) 48.0 - 76.0 % [facility] LYMPHS 9.9(L) 18.0 - 41.0 % [facility] MONOS 9.6 4.0 - 11.0 % [facility] EOS 1.2 0.0 - 5.0 % [facility] BASOS 0.7 0.0 - 1.5 % [facility] Granulocytes, immature (%) 0.3 0.0 - 0.9 % [facility] ABSOLUTE NEUTS 8.80(H) 1.92 - 7.60 K/uL [facility] ABSOLUTE LYMPHS 1.11 0.72 - 4.10 K/uL [facility] ABSOLUTE MONOS 1.08 0.16 - 1.10 K/uL [facility] ABSOLUTE EOS 0.14 0.00 - 0.50 K/uL [facility] ABSOLUTE BASOS 0.08 0.00 - 0.15 K/uL [facility] Granulocytes, immature 0.03 0.00 - 0.09 K/uL [facility] Blood 04/08/2025 3:41 AM EDT 04/08/2025 3:45 AM EDT us Earline Trimble MD LAB BLOOD BKR ORDERABLES Fin al Result Performing Organization Address [facility] de Phone Number [address] [address] * (ABNORMAL) Basic metabolic panel (04/08/2025 3:41 AM EDT) SODIUM 145 133 - 146 mmol/L [facility] CHLORIDE 108 96 - 108 mmol/L [facility] POTASSIUM 4.1 3.3 - 5.1 mmol/L [facility] CO2 27 21 - 35 mmol/L [facility] BUN 15 6 - 19 mg/dL [facility] CREATININE 0.90 0.5 - 1.5 mg/dL [facility] GLUCOSE 131(H) 70 - 99 mg/dL [facility] CALCIUM 9.4 8.4 - 10.3 mg/dL [facility] EGFR 103 >59 mL/min/1.7 3m2 [facility] Comment:Estimated glomerular filtration rate calculated using the CKD-EPI refit equation. ANION GAP 14 10 - 20 mmol/L [facility] Blood 04/08/2025 3:41 AM EDT 04/08/2025 3:45 AM EDT us Earline Trimble MD LAB BLOOD BKR ORDERABLES Fin al Result Performing Organization Address [facility] Co de Phone Number [address] [address] * ECG 12-LEAD (04/08/2025 3:38 AM EDT) Ventricular Rate EKG/MIN 88 BPM [facility] Atrial Rate 88 BPM [facility] ME Interval 152 ms [facility] QRS Duration 78 ms [facility] QT Interval 392 ms [facility] QTC Interval 474 ms [facility] P Lena 78 degrees [facility] R Wave Lena 44 degrees [facility] T Wave Lena 66 degrees [facility] 04/08/2025 3:38 AM EDT 04/08/2025 11:30 AM EDT Narrative [facility] - 04/08/2025 11:30 AM EDT Normal sinus rhythm Anterior infarct , age undetermined Abnormal ECG No previous ECGs available Confirmed by Georgi Nazario ([id number]) on 04/08/2025 11:30:13 AM Earline Trimble MD ECG ORDERABLES Final Result Performing Organization Address [facility] Co de Phone Number [email or web address] * COVID Pandemic Respiratory Viral Order (PRO) (04/08/2025 3:32 AM EDT) Test Ordered Rapid COVID has been ordered [facility] Specimen Source/Description NASAL [facility] SARS-CoV 2 (COVID-19) PCR Not Detected Not Detected [facility] Comment: SARS-CoV-2 not detected Negative results do not preclude SARS-CoV-2 infection and should not be used as the sole basis for patient management decisions. Negative results must be combined with clinical observations, patient history, and epidemiological information. Other (Nasal swab) 04/08/2025 3:32 AM EDT 04/08/2025 3:38 AM EDT Earline Trimble MD LAB GENERAL ORDERABLES Edite d Result - Final Performing Organization Address [facility] Co de Phone Number [facility] [address] [place] [address] from Last 3 Months Insurance [facility] Care Teams Show Host/Hostess Relationship Specialty Start Date End Date Pcp, Unknown PCP - General 04/08/25 Additional Source Comments The information contained in this document represents components of the legal health record. It is not the complete legal health record.[facility]
--- NOTE | 2025-05-19 05:50 | ED_ITS ---
HPI - General Adult General Chief complaint: Psychiatric Symptoms Stated complaint: Crisis Time Seen by Provider: 05/19/25 05:17 Source: patient, RN notes reviewed and old records reviewed Mode of arrival: ambulatory Limitations: no limitations History of Present Illness ED Provider: Mauro ORTIZ narrative: 49-year-old male presents for evaluation of depression with suicidal ideation. He reports a plan to hang himself. He was actually just discharged from the [facility] yesterday after being admitted for suicidal ideation. The patient reports that he has been compliant with his medications. He reports drinking alcohol today in continuing to feel suicidal. He states multiple life stressors are contributed this including his leaving him, his carbon impounded. He denies any somatic complaints Related Data Home Medications ?Medication ?Instructions ?Recorded ?Confirmed buspirone 5 mg tablet 5 mg PO BID 05/19/25 5 hydroxyzine pamoate 50 mg capsule 50 mg PO BID PRN Anx iety 05/19/25 05/21/25 melatonin 3 mg tablet 9 mg PO BEDTIME PRN Sleep 05/21/25 trazodone 100 mg tablet 100 mg PO BEDTIME PRN Sleep 05/19/25 05/21/25 venlafaxine 150 mg 150 mg PO QAM 05/19/2505/21 capsule,extended release 24 hr (Effexor XR) Allergies Allergy/AdvReac Type Severity Reaction Status Date / Time No Known Allergies Allergy Verified 05/21/25 05:22 Review of Systems 2 Constitutional: Constitutional: Denies body ache(s), Denies chills, Denies fever(s) and Denies headache(s) Eyes: Eyes: Denies exophthalmos ENT: Denies dizziness, Denies dry mouth and Denies headache(s) Cardiovascular: Cardiovascular: Denies chest pain Gastrointestinal: Gastrointestinal: Denies abdominal pain Musculoskeletal: Musculoskeletal: Denies back pain Integumentary/Breasts: Skin/Breast: Denies rash Neurologic: Denies dizziness and Denies headache(s) Psychiatric: Psychiatric: Reports anxiety, Reports depression, Denies homicidal ideation and Reports suicidal ideation [facility] Social History Social History Alcohol intake: current Alcohol intake frequency: other Alcohol type: hard liquor Substance Use Type: Crack/Cocaine Physical Exam ED Vital Signs: Vital Signs - 24 hr 05/19/25 22:00 05/20/25 06:38 05/20/25 15:33 Temperature 97.7 F 97.4 F Pulse Rate 88 69 109 H Respiratory Rate 18 16 18 Blood Pressure 118/72 97/56 L 117/72 Pulse Oximetry 97 98 98 Oxygen Delivery Method Room Air Room Air Room Air BMI result Body Mass Index 24.4 Const General: healthy appearing, comfortable, no acute distress, alert and awake Nutritional Appearance: well nourished Orientation/consciousness: patient oriented x3 HENMT Head: Yes normocephalic and Yes atraumatic Eyes Eyelids: Yes eyelids normal Conjunctivae: conjunctivae normal Sclerae: sclerae normal Corneas: corneas normal Pupils: Equal, round and reactive pupils present EOM: EOMs intact bilaterally Neck Neck: Yes full ROM Resp Effort & Inspection: normal respiratory effort, able to speak in complete sentences and not labored GI Inspection: No distended Palpation (GI): Soft to palpation, not firm, nontender, no guarding and not rigid Skin General skin exam: elasticity normal Neuro General: patient oriented x3 Cranial nerves: Yes CN's II-XII intact bilaterally, Yes Equal, round and reactive pupils present and Yes Bilaterally intact EOM present Cognition (Neuro): normal cognition Extrem Other: Moving all extremities well without any obvious deformities Course Reevaluation(s) Reevaluation #1: Time: 05:58 Date: 05/19/25 Provider: Ga Costa MD Patient in physician observation for psychiatric evaluation.? No acute events reported overnight. No current complaints. VS stable.? Patient is in bed search status/pending CARE team evaluation. Will continue to monitor. Time: 09:39 Date: 05/20/25 Provider: Don De Souza DO Patient in physician observation for psychiatric evaluation.? No acute events reported overnight. No current complaints. VS stable.? Patient is in bed search status. Will continue to monitor. Time: 16:19 Date: 05/20/25 Provider: Don De Souza DO Physician observation ended. Patient has been cleared for discharge by the CARE team. Will follow up as an outpatient. Medications Administered Discontinued Medications Generic Name Dose Route Start Last Admin Trade Name Freq PRN Reason Stop Dose Admin Buspirone HCl 5 mg 05/19/25 09:00 05/20/25 09:06 Buspirone Hcl 5 Mg Tablet PO 5 mg BID THOMAS Administration Melatonin 9 mg 05/19/25 05:50 05/19/25 22:44 Melatonin 3 Mg Tablet PO 9 mg BEDTIME PRN Administration Sleep Venlafaxine HCl 150 mg 05/19/25 09:00 05/20/25 09:06 Venlafaxine Hcl Er 150 Mg Cap.Er.24h PO 150 mg DAILY THOMAS Administration Medical Decision Making Medical Decision Making MDM Narrative: 49-year-old male presenting for evaluation of depression with suicidal ideation. He was just recently here for similar and reports continuing to feel suicidal with a plan. Plan for medical clearance and care team evaluation. Differential Diagnosis Differential Diagnoses: The differential diagnosis associated with the presentation includes Depression Suicidal ideation Substance abuse Alcohol intoxication Bipolar disorder Mood disorder Admission/Observation Consideration of admission/observation: Escalation of care including admission/observation considered Lab Data 05/19/25 05:51 05/19/25 05:51 Labs: Lab Results 05/19/25 05/19/25 Range/Units 05:43 05:51 WBC 11.4 H (4.8-10.8) X10*3/uL RBC 4.47 L (4.60-5.80) X10*6/uL Hgb 14.2 (14.0-18.0) g/dl Hct 41.4 L (42.0-52.0) % MCV 92.6 (80.0-98.0) fL MCH 31.8 (27.0-33.0) pg MCHC 34.3 (31.0-36.0) g/dl RDW 13.5 (11.0-16.0) % Plt Count 260 (160-400) X10*3/uL MPV 10.4 (9.4-12.4) fL Immature Gran % (Auto) 0.4 (0.0-0.4) % Neut % (Auto) 72.3 (45-73) % Lymph % (Auto) 17.6 L (20-40) % [place] % (Auto) 8.7 (2-11) % Eos % (Auto) 0.4 (0-4) % Baso % (Auto) 0.6 (0-2) % Lymph # (Auto) 2.0 (1.2-4.9) X10*3/uL [place] # (Auto) 1.0 (0.1-1.2) X10*3/uL Eos # (Auto) 0.0 (0.0-0.4) X10*3/uL Baso # (Auto) 0.1 (0.0-0.2) X10*3/uL Abs Immat Gran (auto) 0.04 H (0.00-0.03) X10*3/uL Absolute Neuts (auto) 8.2 (2.0-8.3) x10*3/uL Absolute Nucleated RBC 0.000 (0.0-0.012) X10*3/uL Nucleated RBC % (auto) 0.0 (0.0-0.2) /100WBC Sodium 139 (135-145) mmol/L Potassium 4.4 (3.3-5.1) mmol/L Chloride 104 (96-108) mmol/L Carbon Dioxide 27 (22-29) mmol/L Anion Gap 12 (12-20) BUN 19 H (9-16) mg/dL Creatinine 1.13 (0.5-1.4) mg/dL Estim Creat Clear Calc 79.8 Estimated GFR > 60 Random Glucose 137 H (60-115) mg/dL Calcium 9.1 (8.4-10.2) mg/dL Total Bilirubin 0.7 (0.0-1.0) mg/dL AST 29 (5-37) U/L ALT 20 (0-40) U/L Alkaline Phosphatase 80 (39-117) U/L Total Protein 6.5 (6.5-8.0) g/dL Albumin 4.2 (3.5-5.0) g/dL Urine Color Yellow Urine Appearance Clear Urine pH 6.5 (5.0-9.0) Ur Specific [place] 1.020 (1.005-1.025) Urine Protein Negative (Neg-Trace) mg/dL Urine Glucose (UA) Negative (Negative) mg/dL Urine Ketones Negative (Negative) mg/dL Urine Blood Negative (Negative) Urine Nitrite Negative (Negative) Ur Leukocyte Esterase Negative (Negative) Salicylates < 5.0 L (15-30) mg/dL Urine Opiates Screen Not Detected (Not Detect) Ur Buprenorphine Scrn Not Detected (Not Detect) ng/mL Ur Oxycodone Screen Not Detected (Not Detect) ng/mL Urine Methadone Screen Not Detected (Not Detect) ng/mL Urine Fentanyl Screen POSITIVE H (Not Detect) Acetaminophen < 3 (<30) mcg/mL Ur Barbiturates Screen Not Detected (Not Detect) Ur Phencyclidine Scrn Not Detected (Not Detect) Ur Amphetamines Screen Not Detected (Not Detect) U Benzodiazepines Scrn Not Detected (Not Detect) Urine Cocaine Screen POSITIVE H (Not Detect) U Marijuana (THC) Screen Not Detected (Not Detect) Ethyl Alcohol < 10 mg/dL Discharge Plan Discharge Clinical Impression: Depression with suicidal ideation Patient Disposition: Home, Self-Care Additional Instructions: You were seen in our Emergency Department today for treatment of a behavioral health issue. It is important after your visit that you follow up with either your behavioral health provider or a primary care doctor within 7 days.? If you have trouble finding a therapist you can reach out to [address] [phone] [facility] [place] [facility] can be reached 7 days a week 24 hours a day.? Call [phone] to speak with someone.? Return for any worsening symptoms or concerns such as thoughts of self harm or harm to others. Please call 911 if you feel your mental health is worsening.? Prescriptions: No Action buspirone 5 mg Tablet 5 mg PO BID venlafaxine [Effexor XR] 150 mg Capsule,Extended Release 24hr 150 mg PO QAM hydroxyzine pamoate [Vistaril] 50 mg Capsule 50 mg PO BID PRN (Reason: Anxiety) trazodone 100 mg Tablet 100 mg PO BEDTIME PRN (Reason: Sleep) melatonin 3 mg Tablet 9 mg PO BEDTIME PRN (Reason: Sleep) Interventions: [place]-Suicide Risk Severity Scale Last Done: 05/20/25 05:03 Discharge Date/Time: 05/20/25 16:31 Print Language: [place]orese
--- NOTE | 2025-05-19 05:50 | PC.NURSE ---
Received patient. car seat coverer completed in the MAIN. Belongings secured in [address]. Endorses increased feelings of hopelessness/depression. Endorses +SI with plan to hang self with rope. [facility] and has been compliant with all prescribed medications. Patient reports recent life stressors such as his leaving him, his car being impounded, and recent ETOH/substance abuse relapse. Describes these events as the perfect storm. [facility] Denies HI/AVH. Agreeable to alert staff if feeling unsafe. Reports he drinks 12 hard seltzers a day, last drink around 12p yesterday. Denies hx of ETOH WD. Reports he uses Cocaine about 1x a week, last use around 12p yesterday. Denies current pain/discomfort. Meal tray ordered. 15 minute safety check initiated. Continue plan for medical clearance and CARE Team Eval.
[2025-05-19 05:58] LABS: MANUAL DIFF FLAG NO
[2025-05-19 05:59] LABS: Hematocrit 41.4 % (42.0-52.0); Hemoglobin 14.2 g/dl (14.0-18.0); Imm Gran Abs Auto 0.04 X10*3/uL (0.00-0.03); Imm Gran Pct Auto 0.4 % (0.0-0.4); Lymphocytes Absolute Auto 2.0 X10*3/uL (1.2-4.9); Mean Corpuscular HGB Conc 34.3 g/dl (31.0-36.0); Mean Corpuscular Hemoglobin 31.8 pg (27.0-33.0); Mean Corpuscular Volume 92.6 fL (80.0-98.0); NRBC Abs Auto 0.000 X10*3/uL (0.0-0.012); NRBC Pct Auto 0.0 /100WBC (0.0-0.2); Platelet Count 260 X10*3/uL (160-400); Red Blood Count 4.47 X10*6/uL (4.60-5.80); White Blood Count 11.4 X10*3/uL (4.8-10.8)
[2025-05-19 06:02] LABS: Appearance Urine Clear; Glucose Urine UA Negative (Negative); PH 6.5 (5.0-9.0); Specific Gravity - Urine 1.020 (1.005-1.025)
[2025-05-19 06:11] LABS: Cannabinoid Screen Urine Not Detected (Not Detect)
[2025-05-19 06:19] LABS: Acetaminophen LAB < 3 mcg/mL (<30); Alanine Aminotransferase 20 U/L (0-40); Albumin Level 4.2 g/dL (3.5-5.0); Alkaline Phosphatase 80 U/L (39-117); Anion Gap 12 (12-20); Aspartate Amino Transferase 29 U/L (5-37); Blood Urea Nitrogen 19 mg/dL (9-16); Calcium 9.1 mg/dL (8.4-10.2); Carbon Dioxide 27 mmol/L (22-29); Chloride 104 mmol/L (96-108); Creatinine Clr Calc Pharmacy 79.8; Estimated Glomerular Filt Rate > 60; Potassium 4.4 mmol/L (3.3-5.1); Salicylate < 5.0 mg/dL (15-30); Sodium 139 mmol/L (135-145); Total Protein 6.5 g/dL (6.5-8.0)
--- NOTE | 2025-05-19 08:28 | PC.NURSE ---
Assumed care, report received. Pt is currently sleeping, safety maintained.
[2025-05-19] MEDS: Venlafaxine HCl ER 150 MG CAP.ER.24H PO (11:08)
--- NOTE | 2025-05-19 13:58 | MHC.CARE ---
Patient evaluated by the CARE Team, disposition [facility], patient will remain in the ED until placement is secured. Dr Costa updated.
[2025-05-19 14:00] VITALS: BP 105/58; PULSE 77; RESP 14; TEMP 36.6; O2SAT 97
[2025-05-19 22:00] VITALS: BP 118/72; PULSE 88; RESP 18; TEMP 36.5; O2SAT 97
[2025-05-20 06:38] VITALS: BP 97/56; PULSE 69; RESP 16; TEMP 36.3; O2SAT 98
--- NOTE | 2025-05-20 07:35 | PC.NURSE ---
Assumed care, report received. Pt is awake, he eats breakfast and goes back to sleep
[2025-05-20] MEDS: Venlafaxine HCl ER 150 MG CAP.ER.24H PO (09:06)
[2025-05-20 15:33] VITALS: BP 117/72; PULSE 109; RESP 18; O2SAT 98
== END 2025-05-20 16:31 | disposition home or self-care (01) ==
PROVIDERS: Emergency Provider Emergency Medicine
DX: F33.1 Major depressive disorder, recurrent, moderate (principal); R45.851 Suicidal ideations; F14.90 Cocaine use, unspecified, uncomplicated; Z51.81 Encounter for therapeutic drug level monitoring; Z79.899 Other long term (current) drug therapy
CPT/HCPCS: 36415; 80053; 80143; 80179; 80307; 81003; 85025; 99285; S9485

== ENCOUNTER 2025-05-21 05:16 | Emergency (ER) | payer OTHER, SELFPAY ==
[2025-05-21 05:17] VITALS: BP 108/62; PULSE 102; RESP 18; TEMP 36.7; O2SAT 94; BMI 24.4
[2025-05-21 05:57] LABS: Cannabinoid Screen Urine Not Detected (Not Detect)
--- OUTSIDE RECORDS SUMMARY | 2025-05-21 06:01 | XMS_ITS | Clinical Summary ---
Author Organization [facility] Address [address] [place] [id number] Phone Care Team Providers Care Layout Operator Name Role Phone Pcp, Unknown Primary Care Provider Unavailabl e Allergies No known active allergies Medications No known medications Active Problems No known active problems Encounters Date Type Department Care Team Description 04/08/2025 3:23 AM EDT - 04/08/2025 10:21 AM EDT Emergency [facility] [address] [place] [address] Earline Trimble MD Steinberg, Benjamin G, MD [...] EDT) URINE CANNABINOIDS NONE DETECTED NONE DETECTED [facility] Comment:Cutoff: 50 ng/mL URINE COCAINE METAB Positive(A) NONE DETECTED [facility] Comment:Cutoff: 300 ng/mL URINE AMPHETAMINES NONE DETECTED NONE DETECTED [facility] Comment:Cutoff: 1000 ng/mL URINE METHADONE NONE DETECTED NONE DETECTED [facility] Comment:Cutoff: 300 ng/mL URINE OPIATES NONE DETECTED NONE DETECTED [facility] Comment:Cutoff: 300 ng/mL URINE PHENCYCLIDINE NONE DETECTED NONE DETECTED [facility] Comment:Cutoff: 25 ng/mL URINE OXYCODONE NONE DETECTED NONE DETECTED [facility] Comment:Cutoff: 300 ng/mL URINE BARBITURATES Positive(A) NONE DETECTED [facility] Comment:Cutoff: 200 ng/mL URINE BENZODIAZEPINE NONE DETECTED NONE DETECTED [facility] Comment:Cutoff: 200 ng/mL URINE BUPRENORPHINE NONE DETECTED NONE DETECTED [facility] Comment:Cutoff: 5 ng/mL Fentanyl, urine NONE DETECTED NONE DETECTED [facility] Comment: Cutoff: 5 ng/mL INTERPRETATION FOR TOXICOLOGY PANEL: These results are unconfirmed and should be used for Medical Treatment purposes only. Urine (Urine) 04/08/2025 5:4 9 AM EDT 04/08/2025 9:29 AM EDT us Earline Trimble MD LAB URINE ORDERABLES Final R esult Performing Organization Address [facility] Co de Phone Number [address] [address] * Ethanol, blood (04/08/2025 3:41 AM EDT) ETHANOL <10 <10 mg/dL [facility] Blood 04/08/2025 3:41 AM EDT 04/08/2025 3:45 AM EDT us Earline Trimble MD LAB BLOOD BKR ORDERABLES Fin al Result Performing Organization Address [facility] de Phone Number [address] [address] * LFTs (hepatic panel) (04/08/2025 3:41 AM EDT) ALKALINE PHOSPHATASE 95 39 - 117 U/L [facility] TOTAL BILIRUBIN <0.2 0.0 - 1.2 mg/dL [facility] DIRECT BILIRUBIN 0.1 0.0 - 0.2 mg/dL [facility] Bilirubin (Indirect) NOT CALCULATED 0 - 1.5 mg/dL [facility] AST 22 0 - 37 U/L [facility] ALT 32 0 - 40 U/L [facility] TOTAL PROTEIN 6.6 6.5 - 8.0 g/dL [facility] ALBUMIN 4.1 3.9 - 4.8 g/dL [facility] GLOBULIN 2.5 1 - 4.8 g/dL [facility] A/G Ratio 1.64 1.00 - 4.80 RATIO [facility] Blood 04/08/2025 3:41 AM EDT 04/08/2025 3:45 AM EDT Earline Trimble MD LAB BLOOD BKR ORDERABLES Fin al Result Performing Organization Address [facility] Co de Phone Number [facility] [address] [place] [address] * (ABNORMAL) CBC and differential (04/08/2025 3:41 AM EDT) WBC 11.24(H) 4.00 - 11.00 K/uL [facility] RBC 4.52 4.50 - 5.90 M/uL [facility] HGB 14.5 13.5 - 17.5 g/dL [facility] HCT 42.2 41.0 - 53.0 % [facility] PLT 273 150 - 450 K/uL [facility] MCV 93.4 80.0 - 100.0 fL [facility] MCH 32.1(H) 27.0 - 31.0 pg [facility] MCHC 34.4 32.0 - 36.0 g/dL [facility] RDW 14.4 11.5 - 14.5 % [facility] MPV 10.9 8.4 - 12.0 fL [facility] NRBC 0.00 0.00 /100 WBCs [facility] ABSOLUTE NRBC 0.00 0.00 K/uL [facility] DIFF METHOD Auto [facility] NEUTS 78.3(H) 48.0 - 76.0 % [facility] LYMPHS 9.9(L) 18.0 - 41.0 % [facility] MONOS 9.6 4.0 - 11.0 % [facility] EOS 1.2 0.0 - 5.0 % [facility] BASOS 0.7 0.0 - 1.5 % [facility] Granulocytes, immature (%) 0.3 0.0 - 0.9 % [facility] ABSOLUTE NEUTS 8.80(H) 1.92 - 7.60 K/uL [facility] ABSOLUTE LYMPHS 1.11 0.72 - 4.10 K/uL [facility] ABSOLUTE MONOS 1.08 0.16 - 1.10 K/uL [facility] ABSOLUTE EOS 0.14 0.00 - 0.50 K/uL [facility] ABSOLUTE BASOS 0.08 0.00 - 0.15 K/uL [facility] Granulocytes, immature 0.03 0.00 - 0.09 K/uL [facility] Blood 04/08/2025 3:41 AM EDT 04/08/2025 3:45 AM EDT us Earline Trimble MD LAB BLOOD BKR ORDERABLES Fin al Result Performing Organization Address [facility] de Phone Number [address] [address] * (ABNORMAL) Basic metabolic panel (04/08/2025 3:41 AM EDT) SODIUM 145 133 - 146 mmol/L [facility] CHLORIDE 108 96 - 108 mmol/L [facility] POTASSIUM 4.1 3.3 - 5.1 mmol/L [facility] CO2 27 21 - 35 mmol/L [facility] BUN 15 6 - 19 mg/dL [facility] CREATININE 0.90 0.5 - 1.5 mg/dL [facility] GLUCOSE 131(H) 70 - 99 mg/dL [facility] CALCIUM 9.4 8.4 - 10.3 mg/dL [facility] EGFR 103 >59 mL/min/1.7 3m2 [facility] Comment:Estimated glomerular filtration rate calculated using the CKD-EPI refit equation. ANION GAP 14 10 - 20 mmol/L [facility] Blood 04/08/2025 3:41 AM EDT 04/08/2025 3:45 AM EDT us Earline Trimble MD LAB BLOOD BKR ORDERABLES Fin al Result Performing Organization Address [facility] Co de Phone Number [address] [address] * ECG 12-LEAD (04/08/2025 3:38 AM EDT) Ventricular Rate EKG/MIN 88 BPM [facility] Atrial Rate 88 BPM [facility] OH Interval 152 ms [facility] QRS Duration 78 ms [facility] QT Interval 392 ms [facility] QTC Interval 474 ms [facility] P [place] 78 degrees [facility] R Wave [place] 44 degrees [facility] T Wave [place] 66 degrees [facility] 04/08/2025 3:38 AM EDT 04/08/2025 11:30 AM EDT Narrative [facility] - 04/08/2025 11:30 AM EDT Normal sinus rhythm Anterior infarct , age undetermined Abnormal ECG No previous ECGs available Confirmed by Georgi Nazario ([id number]) on 04/08/2025 11:30:13 AM Earline Trimble MD ECG ORDERABLES Final Result Performing Organization Address [facility] Co de Phone Number [email or web address] * COVID Pandemic Respiratory Viral Order (PRO) (04/08/2025 3:32 AM EDT) Test Ordered Rapid COVID has been ordered [facility] Specimen Source/Description NASAL [facility] SARS-CoV 2 (COVID-19) PCR Not Detected Not Detected [facility] Comment: SARS-CoV-2 not detected Negative [...] Result - Final Performing Organization Address [facility] Co de Phone Number [facility] [address] [place] [address] from Last [address] [facility] Care Teams Layout Operator Relationship Specialty Start Date End Date Pcp, Unknown PCP - General 04/08/25 Additional Source Comments The information contained in this document represents components of the legal health record. It is not the complete legal health record.[facility]
--- NOTE | 2025-05-21 06:21 | ED.GENADULT ---
[facility] - General Adult General Chief complaint: Psychiatric Symptoms Stated complaint: Crisis Time Seen by Provider: 05/21/25 06:20 Source: patient Mode of arrival: ambulatory Limitations: no limitations History of Present Illness ED Provider: Dr. Shore HPI narrative: 49-year-old male history of depression presenting to ER today for evaluation of suicide ideation. Patient stated that he was at a friend's house when he was looking at a rope and wanted to hang himself. Patient stated that he has been feel like this for the past couple of weeks. Patient is going through separation with his . Related Data Home Medications ?Medication ?Instructions ?Recorded ?Confirmed buspirone 5 mg tablet 5 mg PO BID 05/19/25 05/21/25 hydroxyzine pamoate 50 mg capsule 50 mg PO BID PRN Anxiety 05/19/25 05/21/25 melatonin 3 mg tablet 9 mg PO BEDTIME PRN Sleep 05/19/25 05/21/25 trazodone 100 mg tablet 100 mg PO BEDTIME PRN Sleep 05/19/25 05/21/25 venlafaxine 150 mg 150 mg PO QAM 05/19/25 05/21/25 capsule,extended release 24 hr (Effexor XR) Allergies Allergy/AdvReac Type Severity Reaction Status Date / Time No Known Allergies Allergy Verified 05/21/25 05:22 Review of Systems Review of Systems: Pertinent review of systems as mentioned in HPI. All other system otherwise negative. [facility] Past Medical History [facility] Narrative: Medical history as mentioned in [facility] Social History Social History Alcohol intake: current Alcohol intake frequency: other Alcohol type: hard liquor Substance Use Type: Crack/Cocaine Physical Exam ED Exam Exam: General: Pleasant, no distress, interacting appropriately Head: Normacephalic, atraumatic ENT: oral mucosa moist, neck supple, no tracheal deviation Cardiovascular: regular rate, regular rhythm, no murmurs, rubbing, gallops Respiratory: CTAB, no wheeze, rales, rhonchi Skin: Warm and dry Psychiatric: Appropriate mood and thoughts Vital Signs: Vital Signs - 24 hr 05/21/25 05:17 05/21/25 10:31 Temperature 98.1 F 98.4 F Pulse Rate 102 H 86 Respiratory Rate 18 15 Blood Pressure 108/62 106/66 Pulse Oximetry 94 96 Oxygen Delivery Method Room Air Room Air BMI result Body Mass Index 24.4 Medical Decision Making Medical Decision Making MDM Narrative: 49-year-old male presents to the ER today for evaluation of suicidal ideation. Patient has no medical complaints at this time. Patient is medically clear. Crisis consult will be placed. Lab work were obtained for medical screening process. Care team evaluated patient. He will be bed search for the [place]. Differential Diagnosis Differential Diagnoses: The differential diagnosis associated with the presentation includes Suicide ideation, depression Lab Data 05/21/25 06:21 05/21/25 06:21 Labs: Lab Results 05/21/25 05/21/25 05/21/25 Range/Units 05:39 06:21 10:56 WBC 9.9 (4.8-10.8) X10*3/uL RBC 4.20 L (4.60-5.80) X10*6/uL Hgb 13.3 L (14.0-18.0) g/dl Hct 38.8 L (42.0-52.0) % MCV 92.4 (80.0-98.0) fL MCH 31.7 (27.0-33.0) pg MCHC 34.3 (31.0-36.0) g/dl RDW 13.5 (11.0-16.0) % Plt Count 238 (160-400) X10*3/uL MPV 10.3 (9.4-12.4) fL Immature Gran % (Auto) 0.5 H (0.0-0.4) % Neut % (Auto) 76.4 H (45-73) % Lymph % (Auto) 15.0 L (20-40) % Dod[place]idge % (Auto) 6.8 (2-11) % Eos % (Auto) 0.7 (0-4) % Baso % (Auto) 0.6 (0-2) % Lymph # (Auto) 1.5 (1.2-4.9) X10*3/uL Dod[place]idge # (Auto) 0.7 (0.1-1.2) X10*3/uL Eos # (Auto) 0.1 (0.0-0.4) X10*3/uL Baso # (Auto) 0.1 (0.0-0.2) X10*3/uL Abs Immat Gran (auto) 0.05 H (0.00-0.03) X10*3/uL Absolute Neuts (auto) 7.6 (2.0-8.3) x10*3/uL Absolute Nucleated RBC 0.000 (0.0-0.012) X10*3/uL Nucleated RBC % (auto) 0.0 (0.0-0.2) /100WBC PT 12.2 (11.2-13.5) SEC INR 1.0 (0.9-1.1) Sodium 138 (135-145) mmol/L Potassium 3.8 (3.3-5.1) mmol/L Chloride 104 (96-108) mmol/L Carbon Dioxide 25 (22-29) mmol/L Anion Gap 13 (12-20) BUN 16 (9-16) mg/dL Creatinine 0.86 (0.5-1.4) mg/dL Estim Creat Clear Calc 104.9 Estimated GFR > 60 Random Glucose 85 (60-115) mg/dL Calcium 8.6 (8.4-10.2) mg/dL Total Bilirubin 0.4 0.7 (0.0-1.0) mg/dL Direct Bilirubin 0.3 (0.0-0.5) mg/dL AST 30 28 (5-37) U/L ALT 26 26 (0-40) U/L Alkaline Phosphatase 87 71 (39-117) U/L Total Creatine Kinase (38-174) U/L Total Protein 6.3 L 6.1 L (6.5-8.0) g/dL Albumin 4.1 4.0 (3.5-5.0) g/dL Urine Color Urine Appearance Urine pH (5.0-9.0) Ur Specific Andrews (1.005-1.025) Urine Protein (Neg-Trace) mg/dL Urine Glucose (UA) (Negative) mg/dL Urine Ketones (Negative) mg/dL Urine Blood (Negative) Urine Nitrite (Negative) Ur Leukocyte Esterase (Negative) Salicylates < 5.0 L (15-30) mg/dL Urine Opiates Screen Not Detected (Not Detect) Ur Buprenorphine Scrn Not Detected (Not Detect) ng/mL Ur Oxycodone Screen Not Detected (Not Detect) ng/mL Urine Methadone Screen Not Detected (Not Detect) ng/mL Urine Fentanyl Screen POSITIVE H (Not Detect) Acetaminophen < 3 (<30) mcg/mL Ur Barbiturates Screen Not Detected (Not Detect) Ur Phencyclidine Scrn Not Detected (Not Detect) Ur Amphetamines Screen Not Detected (Not Detect) U Benzodiazepines Scrn Not Detected (Not Detect) Urine Cocaine Screen POSITIVE H (Not Detect) U Marijuana (THC) Screen Not Detected (Not Detect) Ethyl Alcohol 30 mg/dL COVID-19 ([facility] MIGUEL) Negative (Negative) COVID-19 Clin Com See Note 05/21/25 05/21/25 Range/Units 11:00 15:49 WBC (4.8-10.8) X10*3/uL RBC (4.60-5.80) X10*6/uL Hgb (14.0-18.0) g/dl Hct (42.0-52.0) % MCV (80.0-98.0) fL MCH (27.0-33.0) pg MCHC (31.0-36.0) g/dl RDW (11.0-16.0) % Plt Count (160-400) X10*3/uL MPV (9.4-12.4) fL Immature Gran % (Auto) (0.0-0.4) % Neut % (Auto) (45-73) % Lymph % (Auto) (20-40) % Dod[place] % (Auto) (2-11) % Eos % (Auto) (0-4) % Baso % (Auto) (0-2) % Lymph # (Auto) (1.2-4.9) X10*3/uL [place] # (Auto) (0.1-1.2) X10*3/uL Eos # (Auto) (0.0-0.4) X10*3/uL Baso # (Auto) (0.0-0.2) X10*3/uL Abs Immat Gran (auto) (0.00-0.03) X10*3/uL Absolute Neuts (auto) (2.0-8.3) x10*3/uL Absolute Nucleated RBC (0.0-0.012) X10*3/uL Nucleated RBC % (auto) (0.0-0.2) /100WBC PT (11.2-13.5) SEC INR (0.9-1.1) Sodium (135-145) mmol/L Potassium (3.3-5.1) mmol/L Chloride (96-108) mmol/L Carbon Dioxide (22-29) mmol/L Anion Gap (12-20) BUN (9-16) mg/dL Creatinine (0.5-1.4) mg/dL Estim Creat Clear Calc Estimated GFR Random Glucose (60-115) mg/dL Calcium (8.4-10.2) mg/dL Total Bilirubin (0.0-1.0) mg/dL Direct Bilirubin (0.0-0.5) mg/dL AST (5-37) U/L ALT (0-40) U/L Alkaline Phosphatase (39-117) U/L Total Creatine Kinase 97 (38-174) U/L Total Protein (6.5-8.0) g/dL Albumin (3.5-5.0) g/dL Urine Color Yellow Urine Appearance Clear Urine pH 7.0 (5.0-9.0) Ur Specific Andrews 1.010 (1.005-1.025) Urine Protein Negative (Neg-Trace) mg/dL Urine Glucose (UA) Negative (Negative) mg/dL Urine Ketones Negative (Negative) mg/dL Urine Blood Negative (Negative) Urine Nitrite Negative (Negative) Ur Leukocyte Esterase Negative (Negative) Salicylates (15-30) mg/dL Urine Opiates Screen (Not Detect) Ur Buprenorphine Scrn (Not Detect) ng/mL Ur Oxycodone Screen (Not Detect) ng/mL Urine Methadone Screen (Not Detect) ng/mL Urine Fentanyl Screen (Not Detect) Acetaminophen (<30) mcg/mL Ur Barbiturates Screen (Not Detect) Ur Phencyclidine Scrn (Not Detect) Ur Amphetamines Screen (Not Detect) U Benzodiazepines Scrn (Not Detect) Urine Cocaine Screen (Not Detect) U Marijuana (THC) Screen (Not Detect) Ethyl Alcohol mg/dL COVID-19 ([facility]IG[facility]) (Negative) COVID-19 Clin Com Discharge Plan Discharge Clinical Impression: Depression with suicidal ideation Patient Disposition: [facility]fer [facility] Pres[facility]: No Action buspirone 5 mg Tablet 5 mg PO BID venlafaxine [Effexor XR] 150 mg Capsule,Extended Release 24hr 150 mg PO QAM hydroxyzine pamoate [Vistaril] 50 mg Capsule 50 mg PO BID PRN (Reason: Anxiety) trazodone 100 mg Tablet 100 mg PO BEDTIME PRN (Reason: Sleep) melatonin 3 mg Tablet 9 mg PO BEDTIME PRN (Reason: Sleep) Interventions: [facility]-Suicide Risk Severity Scale Last Done: 05/21/25 05:41 Discharge Date/Time: 05/21/25 19:17 Print Language: Ukrainian
[2025-05-21 06:26] LABS: MANUAL DIFF FLAG NO
[2025-05-21 06:29] LABS: Hematocrit 38.8 % (42.0-52.0); Hemoglobin 13.3 g/dl (14.0-18.0); Imm Gran Abs Auto 0.05 X10*3/uL (0.00-0.03); Imm Gran Pct Auto 0.5 % (0.0-0.4); Lymphocytes Absolute Auto 1.5 X10*3/uL (1.2-4.9); Mean Corpuscular HGB Conc 34.3 g/dl (31.0-36.0); Mean Corpuscular Hemoglobin 31.7 pg (27.0-33.0); Mean Corpuscular Volume 92.4 fL (80.0-98.0); NRBC Abs Auto 0.000 X10*3/uL (0.0-0.012); NRBC Pct Auto 0.0 /100WBC (0.0-0.2); Platelet Count 238 X10*3/uL (160-400); Red Blood Count 4.20 X10*6/uL (4.60-5.80); White Blood Count 9.9 X10*3/uL (4.8-10.8)
[2025-05-21 06:45] LABS: Alanine Aminotransferase 26 U/L (0-40); Albumin Level 4.1 g/dL (3.5-5.0); Alkaline Phosphatase 87 U/L (39-117); Anion Gap 13 (12-20); Aspartate Amino Transferase 30 U/L (5-37); Blood Urea Nitrogen 16 mg/dL (9-16); Calcium 8.6 mg/dL (8.4-10.2); Carbon Dioxide 25 mmol/L (22-29); Chloride 104 mmol/L (96-108); Creatinine Clr Calc Pharmacy 104.9; Estimated Glomerular Filt Rate > 60; Potassium 3.8 mmol/L (3.3-5.1); Sodium 138 mmol/L (135-145); Total Protein 6.3 g/dL (6.5-8.0)
[2025-05-21 06:56] LABS: Acetaminophen LAB < 3 mcg/mL (<30); Salicylate < 5.0 mg/dL (15-30)
--- NOTE | 2025-05-21 10:11 | ECG_ITS ---
Test Reason : psych Blood Pressure : */* mmHG Vent. Rate : 79 BPM Atrial Rate : 79 BPM P-R Int : 176 ms QRS Dur : 82 ms QT Int : 392 ms P-R-T Axes : 76 29 68 degrees QTcB Int : 449 ms Normal sinus rhythm with sinus arrhythmia Normal ECG When compared with ECG of 13-May-2025 03:44, No significant change was found Referred By: Catherine Shore Electronically Signed By: ROMEO SIMMS MD
[2025-05-21 10:31] VITALS: BP 106/66; PULSE 86; RESP 15; TEMP 36.9; O2SAT 96
--- NOTE | 2025-05-21 10:44 | PC.NURSE ---
Med rec done by this RN using pts info
[2025-05-21 11:11] LABS: Appearance Urine Clear; Glucose Urine UA Negative (Negative); PH 7.0 (5.0-9.0); Specific Gravity - Urine 1.010 (1.005-1.025)
[2025-05-21 11:19] LABS: INTERNATIONAL NORM RATIO 1.0 (0.9-1.1); Prothrombin Time 12.2 SEC (11.2-13.5)
[2025-05-21 11:22] LABS: COVID-19 Test Negative (Negative); IDNOW Serial# 58CA691E
[2025-05-21 11:24] LABS: Alanine Aminotransferase 26 U/L (0-40); Albumin Level 4.0 g/dL (3.5-5.0); Alkaline Phosphatase 71 U/L (39-117); Aspartate Amino Transferase 28 U/L (5-37); Total Protein 6.1 g/dL (6.5-8.0)
--- NOTE | 2025-05-21 19:07 | MHC.CARE ---
Stan Puentes pt is accepted to [facility] 05/21/25, [place] will provide transport. Accepting is Dr. Ag
== END 2025-05-21 19:17 | disposition other institution (70) ==
PROVIDERS: Emergency Provider Student in an Organized Health Care Education/Training Program
DX: F32.A Depression, unspecified (principal); R45.851 Suicidal ideations; Z03.818 Encounter for observation for suspected exposure to other biological agents ruled out; F41.9 Anxiety disorder, unspecified; Z79.899 Other long term (current) drug therapy
CPT/HCPCS: 36415; 80053; 80076; 80143; 80179; 80307; 81003; 82550; 85025; 85610; 87635; 93005; 99285; S9485

== ENCOUNTER → 2025-05-21 10:11 | Outpatient (BNV) | payer OTHER, SELFPAY | PROVIDERS: Emergency Provider Student in an Organized Health Care Education/Training Program; Visit Provider Internal Medicine Cardiovascular Disease | DX: Z13.6 Encounter for screening for cardiovascular disorders (principal) | CPT/HCPCS: 93010 ==